=== PATIENT | male | born 1995 | race Caucasian/White ===

== ENCOUNTER 2017-06-01 07:02 | Day surgery (SDC) | payer OTHER ==
[~2017-06-01] VITALS: Ht 193 cm; Wt 85.1 kg
[~2017-06-01 07:02] MED LIST: Augmentin 875-1 EACH PO; Cleocin HCl300 MG PO; Norco 5-325 Ta1 EACH PO
== END 2017-06-01 09:27 | disposition home or self-care (01) ==
LOC: ORSCSDS 07:02
PROVIDERS: Otolaryngology
PROC: 0CBPXZZ Excision of Tonsils, External Approach (ICD-10-PCS; principal; 2017-06-01 08:15)
DX: J36 Peritonsillar abscess (principal); J35.01 Chronic tonsillitis; F90.9 Attention-deficit hyperactivity disorder, unspecified type; F17.210 Nicotine dependence, cigarettes, uncomplicated
CPT/HCPCS: 88304; J0330; J1100; J1885; J2250; J2405; J3010; J7120

== ENCOUNTER → 2017-07-17 | Outpatient (CLI) | payer OTHER ==
[~2017-07-17] MED LIST changes: +IBUP800 PO; +LIDO700A20 TOP
[2017-07-17 10:48] LABS: BASOPHILS ABSOLUTE AUTO 0.08 K/mm3 (0.00-0.23); BASOPHILS PERCENT AUTO 1 % (0-2); EOSINOPHILS ABSOLUTE AUTO 0.35 K/mm3 (0.00-0.68); EOSINOPHILS PERCENT AUTO 6 % (0-6); Hematocrit 42.3 % (37.0-53.0); Hemoglobin 14.6 g/dL (13.5-17.5); IMMATURE GRAN ABSOLUTE AUTO 0.03 K/mm3 (0.00-0.10); IMMATURE GRAN PERCENT AUTO 1 % (0-1); LYMPHOCYTES ABSOLUTE AUTO 1.56 K/mm3 (0.84-5.20); LYMPHOCYTES PERCENT AUTO 28 % (21-46); MONOCYTES ABSOLUTE AUTO 0.41 K/mm3 (0.16-1.47); MONOCYTES PERCENT AUTO 7 % (4-13); Mean Corpuscular HGB 32.4 pg (26.0-34.0); Mean Corpuscular HGB Conc 34.5 g/dL (31.5-36.5); Mean Corpuscular Volume 94 fL (80-100); Mean Platelet Volume 10.4 fL (9.1-12.4); NEUTROPHILS ABSOLUTE AUTO 3.14 K/mm3 (1.96-9.15); NEUTROPHILS PERCENT AUTO 56 % (41-73); Platelet Count 232 K/mm3 (150-400); RDW Standard Deviation 44.4 fL (35.1-46.3); Red Blood Cell Count 4.51 M/mm3 (4.30-5.90); White Blood Cell Count 5.57 K/mm3 (4.00-11.30)
[2017-07-20 10:55] LABS: Antinuclear Antibody Screen Negative (Negative)
[2017-07-20 13:57] LABS: Rheumatoid Factor, Serum Negative (Negative)
== END | disposition home or self-care (01) ==
LOC: LAB EV 10:41
PROVIDERS: Physician Assistant
DX: M25.562 Pain in left knee (principal)
CPT/HCPCS: 84550; 85025; 85651; 86038; 86140; 86430; 86812

== ENCOUNTER 2017-08-14 15:28 | Emergency (ER) | payer OTHER ==
[~2017-08-14] VITALS: Ht 195.6 cm; Wt 79.4 kg
[~2017-08-14 15:28] MED LIST changes: -IBUP800 PO; -LIDO700A20 TOP
[2017-08-14] MEDS ORDERED: LIDO700A20 TOP (18:21)
[2017-08-14] MEDS ORDERED: Norco 5-325 Ta1 EACH PO (18:21)
[2017-08-14] MEDS ORDERED: IBUP800 PO (18:21)
== END 2017-08-14 19:25 | disposition home or self-care (01) ==
LOC: ER 15:28
DX: M25.552 Pain in left hip (principal); M54.5 Low back pain; M79.1 Myalgia; Z87.891 Personal history of nicotine dependence; W22.8XXA Striking against or struck by other objects, initial encounter
CPT/HCPCS: 74176; 99284

== ENCOUNTER → 2023-01-16 | Outpatient (CLI) | payer SELFPAY ==
[~2023-01-16] MED LIST changes: +IBUP800 PO; +LIDO700A20 TOP
[2023-01-18 01:07] LABS: CHLAMYDIA TRACHOMATIS, NAA Positive (Negative)
== END ==
LOC: LAB SHORT 11:45 → LAB 11:45
PROVIDERS: Physician Assistant
DX: R30.0 Dysuria (principal)
CPT/HCPCS: 87491; 87591